=== PATIENT | female | born 2000 | race Caucasian/White ===

== ENCOUNTER 2022-04-10 21:07 | Emergency (ER) | payer MEDICAID ==
[2022-04-10 21:41] LABS: BILIRUBIN,URINE NEGATIVE (NEGATIVE); GLUCOSE, URINE (UA) 100 mg/dL (NEGATIVE); KETONES,URINE (UA) NEGATIVE (NEGATIVE); LEUKOCYTE ESTERASE, URINE SMALL (NEGATIVE); NITRITE,URINE NEGATIVE (NEGATIVE); OCCULT BLOOD,URINE SMALL (NEGATIVE); PROTEIN,URINE NEGATIVE (NEGATIVE); UROBILINOGEN,URINE 0.2 (NORMAL) E.U./dL (NORMAL)
[2022-04-10 21:45] LABS: CLARITY,URINE HAZY (CLEAR); HCG UR QUAL NEGATIVE
[2022-04-10 21:50] LABS: BACTERIA,URINE Moderate /HPF (None Seen); RBC,URINE 0-5 /HPF (0-5); SQUAMOUS EPITHELIAL CELL,UR RARE Squamous (<= Few); WBC,URINE >25 /HPF (0-5)
[2022-04-10 22:16] LABS: RAPID STREP SCREEN Negative (Negative)
[2022-04-10] MEDS ORDERED: NITROFURANTOIN MACRO 100 MG CAPSULE PO STA (22:23)
[2022-04-10] MEDS ORDERED: PHENAZOPYRIDINE 100 MG TABLET PO STA (22:23)
[2022-04-10] MEDS ORDERED: DEXAMETHASONE 10 MG/ML VIAL PO STA (22:25)
[2022-04-10] MEDS ORDERED: BENZONATATE 100 MG CAPSULE PO STA (22:25)
[2022-04-10] MEDS ORDERED: CHERRY SYRUP 10 ML UDC PO ONE (22:25)
[2022-04-10] MEDS ORDERED: ACETAMINOPHEN 325 MG TABLET PO STA (22:27)
--- NOTE | 2022-04-10 22:32 | ED Physician Documentation ---
PD HPI FEMALE - Stated complaint Stated Complaint: PAINFUL URINATION/COUGH - Chief complaint Chief Complaint: Abd Pain - Additional information Additional information: Patient is a 21-year-old female with no significant past medical history presenting for evaluation of dysuria and frequency for the last 1 week.Patient denies previous history of UTIs. Denies concern for STDs, vaginal discharge, .Reports she has been having discomfort with urination for the last week which has not improved.Today she had some pain in the right flank but it has improved.Pain earlier felt sharp and was worse with movements. It did not radiate. She had no associated nausea or vomiting. She denies a history of kidney stones. No fever. She has recently had a nonproductive cough and nasal congestion with sore throat. Those symptoms have been improving. Review of Systems Constitutional: denies: Fever Nose: reports: Congestion Throat: reports: Sore throat Cardiac: denies: Chest pain / pressure, Palpitations Respiratory: reports: Cough. denies: Dyspnea GI: denies: Abdominal Pain, Vomiting, Diarrhea : reports: Dysuria, Frequency. denies: Hematuria, Discharge, Vaginal bleeding Neurologic: denies: Headache PD PAST MEDICAL HISTORY - Past Medical History Past Medical History: No - Past Surgical History Past Surgical History: No - Present Medications Home Medications: Ambulatory Orders Medication Instructions Recorded Confirmed Benzonatate [Tessalon] 200 mg PO QID PRN #15 cap 04/10/22 Nitrofurantoin [Macrobid] 1 cap PO BID #10 cap 04/10/22 Phenazopyridine HCl [Pyridium] 200 mg PO TID PRN #6 tablet 04/10/22 - Allergies Allergies/Adverse Reactions: Allergies Allergy/AdvReac Type Severity Reaction Status Date / Time No Known Drug Allergies Allergy Verified 04/10/22 21:20 - Social History Does the pt smoke?: No Smoking Status: Never smoker Does the pt drink ETOH?: No Does the pt have substance abuse?: No - Immunizations Immunizations are current?: Yes - POLST Patient has POLST: No PD ED PE NORMAL - General General: Alert and oriented X 3, No acute distress, Well developed/nourished - HEENT HEENT: Atraumatic, Moist mucous membranes, Pharynx benign - Neck Neck: Supple, no meningeal sign - Cardiac Cardiac: RRR, No murmur, Strong equal pulses - Respiratory Respiratory: No respiratory distress, Clear bilaterally - Abdomen Abdomen: Normal bowel sounds, Soft, Non tender, Non distended - Back Back: No CVA TTP - Derm Derm: No rash - Extremities Extremities: No edema - Neuro Neuro: Normal speech - Psych Psych: Normal mood Results - Vitals Vitals: Vital Signs - 24 hr 04/10/22 04/10/22 04/10/22 21:14 22:06 22:41 Temperature 36.5 C 36.8 C Heart Rate 78 73 Respiratory 14 16 16 Rate Blood Pressure 124/74 126/73 O2 Saturation 98 100 Oxygen O2 Source Room air - Labs Labs: Laboratory Tests 04/10/22 04/10/22 21:25 22:00 Urine Color YELLOW Urine Clarity HAZY Urine pH 6.0 Ur Specific Carlock <=1.005 Urine Protein NEGATIVE Urine Glucose (UA) 100 H Urine Ketones NEGATIVE Urine Occult Blood SMALL H Urine Nitrite NEGATIVE Urine Bilirubin NEGATIVE Urine Urobilinogen 0.2 (NORMAL) Ur Leukocyte Esterase SMALL H Urine RBC 0-5 Urine WBC >25 H Ur Squamous Epith Cells RARE Squamous Urine Bacteria Moderate H Ur Microscopic Review INDICATED Urine Culture Comments INDICATED Urine HCG, Qual NEGATIVE Group A Strep Rapid Negative PD MEDICAL DECISION MAKING - ED course Complexity details: reviewed results, d/w patient ED course: Patient is 21-year-old female with UTI symptoms. Urine analysis is suggestive of infection. She is afebrile with no abdominal symptoms Or tenderness on exam.Patient started on p.o. antibiotics. Patient was additionally with sore throat and nonproductive cough. Lung sounds are clear.Strep test is negative and COVID swab is pending. No signs of airway compromise.Patient given dose of steroids for pharyngitis. Patient counseled on treatment plan and aware of strict return precautions. Departure - Departure Disposition: 01 Home, Self Care Clinical Impression: Cough, Viral pharyngitis UTI (urinary tract infection) Qualifiers: Urinary tract infection type: acute cystitis Hematuria presence: without hematuria Qualified Code(s): N30.00 - Acute cystitis without hematuria Condition: Stable Instructions: ED UTI Cystitis Female, ED Pharyngitis Viral Prescriptions: Nitrofurantoin [Macrobid] 1 cap PO BID #10 cap Phenazopyridine HCl [Pyridium] 200 mg PO TID PRN #6 tablet PRN Reason: dysuria Benzonatate [Tessalon] 200 mg PO QID PRN #15 cap PRN Reason: Cough Comments: Keri - You were evaluated for UTI symptoms as well as a cough. Your urine does show an infection and you have been started on antibiotics. I have also prescribed a medication to help with the burning which may turn your urine orange. You had a strep test which was negative. I have given you a dose of steroids to help with the inflammation in your throat as well as medications to help with your cough. A COVID swab was also done and the results will likely come back tomorrow. If it is abnormal we will give you a phone call. Prescriptions for antibiotics and medication to help with the burning in your urine And cough medication have been sent to the [facility] pharmacy in [place]. Please pick these up tomorrow and take them as prescribed.If you have any worsening symptoms such as fever, trouble swallowing, abdominal pain, vomiting, Worsening pain then please return to the emergency department for another evalua tion. You have a Covid test pending. You need to self quarantine until the result is done and negative. Do not leave your house. Do not get near anybody. The results should be done in 48 to 72 hours. We will call with a positive result, the fastest way to get a negative result for confirmation though is to go to the hospital website at [email or web address], click on the my [facility] tab and sign up for the patient portal. If any friends or family get sick and would like to have a Covid test done, but do not have signs or symptoms that would necessitate being hospitalized, there are multiple local options for Covid testing. [facility] keeps an updated list of testing and vaccination options at: [email or web address]. Discharge Date/Time: 04/10/22 22:42
[2022-04-10 22:42] VITALS: BP 126/73
== END 2022-04-10 22:42 | disposition home or self-care (01) ==
LOC: ED 21:07
DX: J02.9 Acute pharyngitis, unspecified (principal); N30.00 Acute cystitis without hematuria
CPT/HCPCS: 81001; 81025; 87070; 87086; 87181; 87430; 87635; 99282; 99283; A9270; 81003

== ENCOUNTER 2024-08-20 21:44 | Emergency (ER) | payer MEDICAID, OTHER ==
[2024-08-20 21:59] VITALS: BP 140/95; O2SAT 98
--- NOTE | 2024-08-20 22:02 | ED Physician Documentation ---
PD HPI UPPER EXT INJURY - Stated complaint Stated Complaint: RT ARM INJ - Chief complaint Chief Complaint: Trauma Ext - History obtained from History obtained from: Patient - Additonal information Additional information: 23-year-old female with no significant past medical history presents with right wrist pain after workplace accident. Patient comes with L&I paperwork. Patient states that prior to arrival she was moving boxes of water containers at work when the stack tipped over and she had to brace herself to prevent boxes from falling on her. Since that time she has had pain in her right wrist. No medications taken prior to arrival. Patient denies other accident or injury to the affected area. Review of Systems Constitutional: denies: Fever, Chills Musculoskeletal: reports: Joint pain. denies: Neck pain, Back pain, Extremity pain, Extremity swelling, Joint swelling PD PAST MEDICAL HISTORY - Past Medical History Past Medical History: No - Past Surgical History Past Surgical History: No - Present Medications Home Medications: Ambulatory Orders Medication Instructions Recorded Confirmed No Known Home Medications 08/20/24 08/20/24 - Allergies Allergies/Adverse Reactions: Allergies Allergy/AdvReac Type Severity Reaction Status Date / Time No Known Drug Allergies Allergy Verified 08/20/24 21:47 - Social History Does the pt smoke?: No Smoking Status: Never smoker Does the pt drink ETOH?: No Does the pt have substance abuse?: No - Immunizations Immunizations are current?: Yes - POLST Patient has POLST: No PD ED PE NORMAL - Vitals Vital signs reviewed: Yes - General General: Alert and oriented X 3, No acute distress, Well developed/nourished - Derm Derm: Normal color, Warm and dry, No rash - Extremities Extremities: No deformity, Normal ROM s pain, No edema, Other (generalized pain over dorsum of R wrist. Full ROM, able make thumbs up, A-ok sign, wiggle all fingers. 2+ radial pulses) - Neuro Neuro: Alert and oriented X 3, hspt tutor 2-12 intact, No motor deficit, Normal speech Results - Vitals Vitals: Vital Signs - 24 hr 08/20/24 21:47 Temperature 36.5 C Heart Rate 88 Respiratory 16 Rate Blood Pressure 140/95 H O2 Saturation 98 Oxygen O2 Source Room air PD Medical Decision Making - ED course Complexity details: reviewed results, re-evaluated patient, considered differential, d/w patient ED course: Well-appearing patient with dorsal wrist pain after hyperextension injury of right wrist. Neurovascularly intact with full range of motion. X-ray imaging negative for acute traumatic findings. Patient placed in Velcro wrist splint. Counseled RICE instructions at bedside. Note for work provided. L&I paperwork filled out. Departure - Departure Disposition: Home, Self Care Clinical Impression: Right wrist sprain Qualifiers: Encounter type: initial encounter Qualified Code(s): S63.501A - Unspecified sprain of right wrist, initial encounter Condition: Stable Instructions: ED Sprain Wrist Comments: Your x-ray imaging did not show any abnormalities. You may wear the wrist splint as desired for comfort. Take Tylenol and ibuprofen as needed for pain or discomfort. You may also apply ice as needed to areas of swelling. Forms: PCP List Discharge Date/Time: 08/20/24 22:50
[2024-08-20] MEDS: KETOROLAC 30 MG/ML VIAL IM STA (22:20)
--- NOTE | 2024-08-20 22:43 | XRAY Report ---
PROCEDURE: Wrist 3+V RT INDICATIONS: Hyperextension inj, dorsal pain TECHNIQUE: 3 views of the wrist were acquired. COMPARISON: None. FINDINGS: Bones: No displaced fracture or dislocation. Soft tissues: No suspicious calcifications. IMPRESSION: No acute osseous abnormality. If there is high concern for occult injury, consider repeat radiography or cross-sectional imaging. Reviewed by: Bo Llamas MD on 08/20/2024 10:41 PM PDT Approved by: Bo Llamas MD on 08/20/2024 10:41 PM PDT Station ID: [id number]
== END 2024-08-20 22:50 | disposition home or self-care (01) ==
LOC: ED 21:44
DX: S63.501A Unspecified sprain of right wrist, initial encounter (principal); X58.XXXA Exposure to other specified factors, initial encounter; Y99.0 Civilian activity done for income or pay
CPT/HCPCS: 1040M; 99283